=== PATIENT | female | born 1995 | race Caucasian/White ===

== ENCOUNTER 2016-12-20 02:43 | Emergency (ER) | payer SELFPAY ==
[2016-12-20 03:27] LABS: APPEARANCE,URINE CLEAR; BILIRUBIN,URINE NEGATIVE (NEGATIVE); GLUCOSE, URINE NEGATIVE (NEGATIVE); KETONES,URINE NEGATIVE (NEGATIVE); LEUKOCYTE ESTERASE,URINE NEGATIVE (NEGATIVE); NITRITE,URINE NEGATIVE (NEGATIVE); PROTEIN,URINE NEGATIVE (NEGATIVE); URINE SPECIFIC GRAVITY 1.001; UROBILINOGEN,URINE NEGATIVE mg/dL (<2.0)
[2016-12-20 03:57] LABS: ABSOLUTE EOSINOPHILS # (AUTO) 0.1 10^3/uL (0.0-0.6); ABSOLUTE LYMPHOCYTES (AUTO) 2.7 10^3/uL (0.5-4.7); ABSOLUTE MONOCYTES (AUTO) 0.9 10^3/uL (0.1-1.4); ABSOLUTE NEUT (AUTO) 6.6 10^3/uL (1.7-8.2); BASOPHILS % (AUTO) 0.3 % (0-2); HEMATOCRIT 42.1 % (36.0-47.0); HGB HCT DIFFERENCE 2.9; LYMPHOCYTES % (AUTO) 25.9 % (13-45); MEAN CORPUSCULAR HEMOGLOBIN 28.6 pg (27.0-33.4); MEAN CORPUSCULAR HGB CONC 35.5 g/dL (32.0-36.0); MEAN CORPUSCULAR VOLUME 81 fl (80-97); MONOCYTES % (AUTO) 8.4 % (3-13); RED BLOOD COUNT 5.22 10^6/uL (3.72-5.28); RED CELL DISTRIBUTION WIDTH 13.5 % (11.5-14.0); SEGMENTED NEUTROPHILS % (AUTO) 64.4 % (42-78); WHITE BLOOD COUNT 10.2 10^3/uL (4.0-10.5)
[2016-12-20 04:05] LABS: ALANINE AMINOTRANSFERASE 27 U/L (9-52); ALBUMIN 4.6 g/dL (3.5-5.0); ALCOHOL 113 mg/dL (NONE DETECTED); ALKALINE PHOSPHATASE 63 U/L (38-126); ANION GAP 18 (5-19); ASPARTATE AMINO TRANSFERASE 21 U/L (14-36); BILIRUBIN,DIRECT 0.3 mg/dL (0.0-0.4); BILIRUBIN,TOTAL 0.6 mg/dL (0.2-1.3); BLOOD UREA NITROGEN 17 mg/dL (7-20); CALCIUM 9.6 mg/dL (8.4-10.2); CARBON DIOXIDE 22 mmol/L (22-30); CHLORIDE 101 mmol/L (98-107); CREATININE RESULT 0.86 mg/dL (0.52-1.25); GLUCOSE 89 mg/dL (75-110); POTASSIUM 3.9 mmol/L (3.6-5.0); SODIUM 140.8 mmol/L (137-145); TOTAL PROTEIN 8.1 g/dL (6.3-8.2)
--- NOTE | 2016-12-20 04:41 | ER Document Report ---
ED General - General TRAVEL OUTSIDE OF THE U.S. IN LAST 30 DAYS: No <FREDI CARBAJAL - Last Filed: 12/20/16 04:41> <PHILIPPE ARORA - Last Filed: 12/20/16 10:34> - General Chief Complaint: Suicidal Ideation Stated Complaint: SUICIDAL IDEATION Notes: Patient is a 21-year-old male who presents for complaints of suicidal ideations. Patient says that yesterday he was very depressed and therefore he cut himself several times on the wrists. Today he is feeling better and went to a constitution party with his friend. His friend got pulled over and the patient became anxious and again depressed. He therefore was brought to ER says he is suicidal. Patient still says he is suicidal says he needs help. He denies being prescribed any medications. He says he does take melatonin to try to help him sleep. He is in the process of becoming transgender. He is on no antidepressant medications. Has no other complaints at this time. No recent fevers or infections. (FREDI CARBAJAL) - Related Data Allergies/Adverse Reactions: latex Allergy (Verified 12/20/16 02:53) Sulfa (Sulfonamide Antibiotics) Allergy (Verified 12/20/16 02:53) Past Medical History - Social History Smoking Status: Unknown if Ever Smoked Frequency of alcohol use: Occasional Drug Abuse: None Family History: Other - Mother and grandfather have obstructive sleep apnea Psychiatric Medical History: Reports: Hx Depression Past Surgical History: Reports: Hx Myringotomy <FREDI CARBAJAL - Last Filed: 12/20/16 04:41> Review of Systems <FREDI CARBAJAL - Last Filed: 12/20/16 04:41> <PHILIPPE ARORA - Last Filed: 12/20/16 10:34> - Review of Systems Notes: My Normal Review Basic REVIEW OF SYSTEMS: CONSTITUTIONAL : Denies fever, chills, or sweats. Denies recent illness. EENT: Denies eye, ear, throat, or mouth pain or symptoms. Denies nasal or sinus congestion. RESPIRATORY: Denies cough, cold, or chest congestion. Denies shortness of breath, difficulty breathing, or wheezing. GASTROINTESTINAL: Denies abdominal pain. Denies nausea, vomiting, or diarrhea. Denies constipation. Last BM: GENITOURINARY: Denies difficulty urinating, painful urination, burning, frequency, or blood in urine. MUSCULOSKELETAL: Denies neck or back pain or joint pain or swelling. SKIN: Self-induced abrasions to wrist. NEUROLOGICAL: Denies altered mental status or loss of consciousness. Denies headache. Denies weakness or paralysis or loss of use of either side. Denies problems with gait or speech. Denies sensory or motor loss. PSYCHIATRIC: Depression ALL OTHER SYSTEMS REVIEWED AND NEGATIVE. (FREDI CARBAJAL) Physical Exam <FREDI CARBAJAL - Last Filed: 12/20/16 04:41> <PHILIPPE ARORA - Last Filed: 12/20/16 10:34> - Vital signs Vitals: Temp Pulse Resp BP 98.4 F 66 20 136/75 H 12/20/16 07:08 12/20/16 07:08 12/20/16 07:08 12/20/16 07:08 - Notes Notes: General Appearance: Well nourished, alert, cooperative, no acute distress, no obvious discomfort. Well-appearing. Vitals: reviewed, See vital signs table. Head: no swelling or tenderness to the head Eyes: PERRL, EOMI, Conjuctiva clear Mouth: No decreasd moisture Neck: Supple, no neck tenderness Lungs: No wheezing, No rales, No rhonci, No accessory muscle use, good air exchange bilaterally. Heart: Normal rate, Regular rythm, No murmur, no rub Extremities: strength 5/5 in all extremities, good pulses in all extremities, no swelling or tenderness in the extremities, no edema. Skin: Several small superficial self-induced abrasions to both wrists. These abrasions barely break the skin. No suturing needed. Neuro: speech clear, oriented x 3, normal affect, responds appropriately to questions. (FREDI CARBAJAL) Course - Laboratory Result Diagrams: 12/20/16 03:12 12/20/16 03:12 <FREDI CARBAJAL - Last Filed: 12/20/16 04:41> - Laboratory Result Diagrams: 12/20/16 03:12 12/20/16 03:12 <PHILIPPE ARORA - Last Filed: 12/20/16 10:34> - Vital Signs Vital signs: Temp Pulse Resp BP Pulse Ox 98.4 F 66 20 136/75 H 12/20/16 07:08 12/20/16 07:08 12/20/16 07:08 12/20/16 07:08 - Laboratory Laboratory results interpreted by me: 12/20/16 12/20/16 03:12 03:12 Urine Blood SMALL H Salicylates < 1.0 L Acetaminophen < 10 L - Transfer of Care Notes: 12/20/16 04:44 Patient requests evaluation by psychiatry for her depression. Patient is voluntary. Patient does not voluntary committed and I do not feel fits involuntary commitment criteria at this time. I do not really suspect that the patient is truly suicidal currently at this moment. Patient is actually very happy appearing and upbeat. At this time patient is medically stable for psychiatric evaluation. 12/20/16 04:45 Dictation of this chart was performed using voice recognition software; therefore, there may be some unintended grammatical errors. (FREDI CARBAJAL) Discharge <FREDI CARBAJAL - Last Filed: 12/20/16 04:41> <PHILIPPE ARORA - Last Filed: 12/20/16 10:34> - Discharge Clinical Impression: Suicidal ideation Depression Qualifiers: Depression Type: unspecified Qualified Code(s): F32.9 - Major depressive disorder, single episode, unspecified Scratch of left forearm Qualifiers: Encounter type: initial encounter Qualified Code(s): S50.812A - Abrasion of left forearm, initial encounter Scratch of right forearm Qualifiers: Encounter type: initial encounter Qualified Code(s): S50.811A - Abrasion of right forearm, initial encounter Disposition: HOME, SELF-CARE Additional Instructions: DEPRESSION: Your evaluation reveals that you have mental depression. While symptoms may be vague, they often include disturbance of sleep, fatigue, loss of appetite , and general loss of interest in life. While depression may be a side effect of drugs, or a reaction to a major change in your life, many cases have no known cause. If depression is acute, and related to a major loss in your life, you can expect it to clear completely with time. If you have been depressed a long time , are prone to repeated bouts of depression or low mood, or have been thinking of suicide, get help. Depression can be treated with anti-depressant medication and counselling. Long-term depression will often take a few weeks to clear, even with appropriate medication. Follow-up care is important. SUICIDAL IDEATION: Suicidal ideation is a common medical term for thoughts about suicide, which may be as detailed as a formulated plan, without the suicidal act itself. Although most people who undergo suicidal ideation do not commit suicide, some go on to make suicide attempts. The range of suicidal ideation varies greatly from fleeting to detailed planning, role playing, and unsuccessful attempts. While thoughts about suicide are common, most people do not carry out serious actions to commit suicide. Based upon your evaluation and discussion with you, we do not believe you are currently at risk to act upon your thoughts of suicide. You have agreed to return to the Emergency Department, at any time , if you feel inclined to act upon your suicidal thoughts. ABRASIONS of the forearms: An abrasion is a scraping injury of the skin. Some scarring may result. The seriousness of an abrasion is not always obvious at first. Hidden tissue damage may be present and infection may occur despite proper care. Complete healing may take from ten days to as long as a month. The healing time depends on the depth of the abrasion, and on the amount of crushing of underlying tissues from the injury. Keep the wound and dressing clean. Do not shower or bathe the area until okayed by the doctor. If the dressing gets wet, remove it and blot the wound dry, then reapply a clean dressing. Dressings should be changed every day. Sunscreen should be used for six months after the skin is healed. If any signs of infection occur (swelling, redness, increasing tenderness, red streaks, profuse purulent drainage from the abrasion, tender lumps in the armpit or groin above the abrasion, or fever), see the doctor immediately. NON-SUTURED LACERATION: Your laceration did not require suturing. Some lacerations cannot be sutured because of increased infection risk, while others simply don't need stitches because they are shallow or very short. Your injury should be protected while it heals. Usually complete healing takes 10 to 14 days. Keep the dressing clean and dry, and change it every day. If you notice increasing pain, redness, swelling, drainage, or tender lumps in the armpit or groin above the injury, infection may be present. You should call the doctor at once. FOLLOW-UP CARE: If you have been referred to a physician for follow-up care, call the physician s office for an appointment as you were instructed or within the next two days. If you experience worsening or a significant change in your symptoms, notify the physician immediately or return to the Emergency Department at any time for re-evaluation. Referrals: [facility] [Provider Group] - Follow up tomorrow
--- NOTE | 2016-12-20 09:12 | EKG REPORT ---
SEVERITY:- NORMAL ECG - SINUS RHYTHM : Confirmed by: Joselito Damon MD 20-Dec-2016 09:12:09
--- NOTE | 2016-12-20 10:18 | ER Document Report ---
Doctor's Note Notes: 12/20/16 10:17 Rounds: Chart reviewed. Patient is being evaluated for depression, suicidal ideation, and some self-inflicted cuts. Patient is currently talking with mental health provider so patient not interviewed at this time. Review of chart reveals normal vital signs. Lab studies were normal except for an alcohol level CXIII. Patient did not get us a urine specimen and no urine drug screen has been done at this time. Still, patient appears to be medically stable for discharge or transfer. Mayelin Garcia M.D. 12/20/16 10:29 Able to interview patient. Denies feeling suicidal at this time. Mental health is recommending discharge for outpatient follow-up at [facility] tomorrow. Patient has minor scratches on her forearms and nothing that requires suturing or other medical care Mayelin Garcia M.D.
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
[2016-12-20 10:52] LABS: URINE BARBITURATES SCREEN NEGATIVE; URINE METHADONE SCREEN NEGATIVE; URINE OPIATES LOW NEGATIVE; URINE PHENCYCLIDINE SCREEN NEGATIVE
[2016-12-20 11:18] VITALS: BP 122/77
== END 2016-12-20 11:00 | disposition home or self-care (01) ==
LOC: ER 02:43
DX: F32.9 Major depressive disorder, single episode, unspecified (principal); F64.0 Transsexualism; S60.812A Abrasion of left wrist, initial encounter; S60.811A Abrasion of right wrist, initial encounter; X83.8XXA Intentional self-harm by other specified means, initial encounter; F17.200 Nicotine dependence, unspecified, uncomplicated; Z88.2 Allergy status to sulfonamides; Z91.040 Latex allergy status
CPT/HCPCS: 36415; 80053; 80307; 81001; 85025; 93005; 93010; 99285

== ENCOUNTER 2017-02-07 01:39 | Emergency (ER) | payer SELFPAY ==
[2017-02-07 02:23] LABS: ABSOLUTE BASOPHILS # (AUTO) 0.1 10^3/uL (0.0-0.2); ABSOLUTE EOSINOPHILS # (AUTO) 0.3 10^3/uL (0.0-0.6); ABSOLUTE LYMPHOCYTES (AUTO) 2.5 10^3/uL (0.5-4.7); ABSOLUTE MONOCYTES (AUTO) 0.8 10^3/uL (0.1-1.4); ABSOLUTE NEUT (AUTO) 6.4 10^3/uL (1.7-8.2); BASOPHILS % (AUTO) 0.5 % (0-2); EOSINOPHILS % (AUTO) 3.3 % (0-6); HEMATOCRIT 45.6 % (36.0-47.0); HEMOGLOBIN 15.4 g/dL (12.0-15.5); HGB HCT DIFFERENCE 0.6; LYMPHOCYTES % (AUTO) 24.9 % (13-45); MEAN CORPUSCULAR HEMOGLOBIN 28.1 pg (27.0-33.4); MEAN CORPUSCULAR HGB CONC 33.7 g/dL (32.0-36.0); MEAN CORPUSCULAR VOLUME 83 fl (80-97); MONOCYTES % (AUTO) 7.9 % (3-13); RED BLOOD COUNT 5.47 10^6/uL (3.72-5.28); RED CELL DISTRIBUTION WIDTH 14.3 % (11.5-14.0); SEGMENTED NEUTROPHILS % (AUTO) 63.4 % (42-78); WHITE BLOOD COUNT 10.1 10^3/uL (4.0-10.5)
[2017-02-07 02:34] LABS: ALANINE AMINOTRANSFERASE 39 U/L (9-52); ALBUMIN 4.2 g/dL (3.5-5.0); ALKALINE PHOSPHATASE 66 U/L (38-126); ANION GAP 13 (5-19); ASPARTATE AMINO TRANSFERASE 23 U/L (14-36); BILIRUBIN,DIRECT 0.3 mg/dL (0.0-0.4); BILIRUBIN,TOTAL 0.5 mg/dL (0.2-1.3); BLOOD UREA NITROGEN 10 mg/dL (7-20); CALCIUM 9.6 mg/dL (8.4-10.2); CARBON DIOXIDE 26 mmol/L (22-30); CHLORIDE 104 mmol/L (98-107); CREATININE RESULT 0.75 mg/dL (0.52-1.25); GLUCOSE 100 mg/dL (75-110); POTASSIUM 4.6 mmol/L (3.6-5.0); SODIUM 142.8 mmol/L (137-145); TOTAL PROTEIN 7.5 g/dL (6.3-8.2)
[2017-02-07 02:36] LABS: ALCOHOL < 10 mg/dL (NONE DETECTED)
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
[2017-02-07 05:33] LABS: APPEARANCE,URINE CLEAR; BILIRUBIN,URINE NEGATIVE (NEGATIVE); GLUCOSE, URINE NEGATIVE (NEGATIVE); KETONES,URINE NEGATIVE (NEGATIVE); LEUKOCYTE ESTERASE,URINE NEGATIVE (NEGATIVE); NITRITE,URINE NEGATIVE (NEGATIVE); PROTEIN,URINE NEGATIVE (NEGATIVE); URINE SPECIFIC GRAVITY 1.014; UROBILINOGEN,URINE NEGATIVE mg/dL (<2.0)
[2017-02-07 05:44] LABS: URINE BARBITURATES SCREEN NEGATIVE; URINE OPIATES LOW NEGATIVE; URINE PHENCYCLIDINE SCREEN NEGATIVE
[2017-02-07 05:45] LABS: URINE METHADONE SCREEN NEGATIVE
--- NOTE | 2017-02-07 09:38 | ER Document Report ---
Doctor's Note Notes: 02/07/17 09:36 I have evaluated this pt. this am and she has no c/o at this time. She feels all of her needs are being met and her physical exam is normal. She is awaiting disposition per mental health.
--- NOTE | 2017-02-07 09:45 | EKG REPORT ---
SEVERITY:- OTHERWISE NORMAL ECG - SINUS ARRHYTHMIA, RATE [id number] : Confirmed by: Venus Enrique 07-Feb-2017 09:44:08
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
--- NOTE | 2017-02-08 11:03 | ER Document Report ---
Doctor's Note Notes: 02/08/17 11:02 Rounds: Chart reviewed and patient interview. Patient is not very talkative or interactive. Appears tearful at times. Patient has a history of depression and bipolar disorder. Reportedly having auditory hallucinations and homicidal thoughts. Patient does not discuss these with me. Vital signs are all normal. Lab studies were all normal. Patient appears to be medically stable for transfer or discharge. Mayelin Garcia MD
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
[2017-02-08 17:37] VITALS: BP 112/65
== END 2017-02-08 16:05 | disposition home or self-care (01) ==
LOC: ER 01:39
DX: F31.5 Bipolar disorder, current episode depressed, severe, with psychotic features (principal); R45.850 Homicidal ideations; F17.200 Nicotine dependence, unspecified, uncomplicated; Z91.040 Latex allergy status; Z88.2 Allergy status to sulfonamides
CPT/HCPCS: 36415; 80053; 80307; 81001; 84703; 85025; 93005; 93010; 99285

== ENCOUNTER 2017-02-09 22:46 | Emergency (ER) | payer SELFPAY ==
--- NOTE | 2017-02-10 02:46 | ER Document Report ---
HPI - HPI Patient complains to provider of: Anxiety attack Onset: This evening Pain Level: 0 Context: 21-year-old female with a history of bipolar that was with her mother told her mother she needed to come to the emergency room because she felt like she was having an anxiety attack. She has been taking the medication. Not suicidal or homicidal. Associated Symptoms: None Exacerbated by: Denies Relieved by: Denies Similar symptoms previously: Yes Recently seen / treated by doctor: Yes - ROS ROS below otherwise negative: Yes Systems Reviewed and Negative: Yes All other systems reviewed and negative - CARDIOVASCULAR Cardiovascular: DENIES: Chest pain - REPRODUCTIVE Reproductive: DENIES: : - DERM Skin Color: Normal, [place] Past Medical History - General Information source: Patient - Social History Smoking Status: Current Every Day Smoker Chew tobacco use (# tins/day): No Frequency of alcohol use: Social Drug Abuse: None Lives with: Family Family History: Other - Mother and grandfather have obstructive sleep apnea Patient has suicidal ideation: No Patient has homicidal ideation: No Renal/ Medical History: Denies: Hx Peritoneal Dialysis Psychiatric Medical History: Reports: Hx Depression Past Surgical History: Reports: Hx Myringotomy, Hx Oral Surgery - wisdom teeth removal Vertical Provider Document - CONSTITUTIONAL Agree With Documented VS: Yes Exam Limitations: No Limitations - INFECTION CONTROL TRAVEL OUTSIDE OF THE U.S. IN LAST 30 DAYS: No - HEENT HEENT: Normocephalic - NECK Neck: Supple. negative: Lymphadenopathy-Left, Lymphadenopathy-Right - RESPIRATORY Respiratory: Breath Sounds Normal, No Respiratory Distress O2 Sat by Pulse Oximetry: 96 - CARDIOVASCULAR Cardiovascular: Regular Rate, Regular Rhythm - GI/ABDOMEN Gastrointestinal: Abdomen Soft, Abdomen Non-Tender - BACK Back: Normal Inspection - MUSCULOSKELETAL/EXTREMETIES Musculoskeletal/Extremeties: MAEW, FROM, Non-Tender - NEURO Level of Consciousness: Awake, Alert, Appropriate Motor/Sensory: No Motor Deficit, No Sensory Deficit - DERM Integumentary: Warm, Dry, No Rash Course - Re-evaluation Re-evalutation: 02/10/17 03:13 Spoke with her mother who will come pick her up and take her to [facility] as instructed on 02-07-17 - Vital Signs Vital signs: Temp Pulse Resp BP Pulse Ox 98.1 F 105 H 16 120/66 96 02/09/17 23:20 02/09/17 23:20 02/09/17 23:20 02/09/17 23:20 02/09/17 23:20 Discharge - Discharge Clinical Impression: Anxiety, bipola Insomnia Qualifiers: Insomnia type: unspecified Qualified Code(s): G47.00 - Insomnia, unspecified Condition: Good Disposition: HOME, SELF-CARE Instructions: Anxiety ([facility]), Bipolar Disorder ([facility]) Additional Instructions: go home with your mother go to [facility] as instructed by the psych consult when at [facility] on 02-07-17 to er any concerns
[2017-02-10] MEDS ORDERED: HYDROXYZINE PAMOATE 50 MG CAPSULE PO ONE (03:14)
[2017-02-10 07:30] VITALS: BP 118/56
== END 2017-02-10 03:20 | disposition home or self-care (01) ==
LOC: ER 22:46
DX: G47.00 Insomnia, unspecified (principal); F41.9 Anxiety disorder, unspecified; F31.9 Bipolar disorder, unspecified; F17.200 Nicotine dependence, unspecified, uncomplicated
CPT/HCPCS: 99283

== ENCOUNTER 2017-03-09 22:21 | Emergency (ER) | payer SELFPAY ==
[2017-03-09 23:07] LABS: ABSOLUTE BASOPHILS # (AUTO) 0.1 10^3/uL (0.0-0.2); ABSOLUTE EOSINOPHILS # (AUTO) 0.6 10^3/uL (0.0-0.6); ABSOLUTE LYMPHOCYTES (AUTO) 2.8 10^3/uL (0.5-4.7); ABSOLUTE MONOCYTES (AUTO) 0.9 10^3/uL (0.1-1.4); ABSOLUTE NEUT (AUTO) 5.8 10^3/uL (1.7-8.2); BASOPHILS % (AUTO) 0.6 % (0-2); EOSINOPHILS % (AUTO) 5.8 % (0-6); HEMATOCRIT 44.3 % (36.0-47.0); HEMOGLOBIN 14.5 g/dL (12.0-15.5); HGB HCT DIFFERENCE -0.8; LYMPHOCYTES % (AUTO) 27.9 % (13-45); MEAN CORPUSCULAR HEMOGLOBIN 27.7 pg (27.0-33.4); MEAN CORPUSCULAR HGB CONC 32.8 g/dL (32.0-36.0); MEAN CORPUSCULAR VOLUME 84 fl (80-97); RED BLOOD COUNT 5.25 10^6/uL (3.72-5.28); RED CELL DISTRIBUTION WIDTH 13.7 % (11.5-14.0); SEGMENTED NEUTROPHILS % (AUTO) 56.7 % (42-78); WHITE BLOOD COUNT 10.2 10^3/uL (4.0-10.5)
[2017-03-09 23:12] LABS: ALANINE AMINOTRANSFERASE 42 U/L (9-52); ALBUMIN 4.2 g/dL (3.5-5.0); ALCOHOL 81 mg/dL (NONE DETECTED); ALKALINE PHOSPHATASE 61 U/L (38-126); ANION GAP 15 (5-19); ASPARTATE AMINO TRANSFERASE 22 U/L (14-36); BILIRUBIN,DIRECT 0.4 mg/dL (0.0-0.4); BILIRUBIN,TOTAL 0.4 mg/dL (0.2-1.3); BLOOD UREA NITROGEN 14 mg/dL (7-20); CALCIUM 9.3 mg/dL (8.4-10.2); CARBON DIOXIDE 22 mmol/L (22-30); CHLORIDE 105 mmol/L (98-107); CREATININE RESULT 0.75 mg/dL (0.52-1.25); GLUCOSE 90 mg/dL (75-110); TOTAL PROTEIN 7.4 g/dL (6.3-8.2)
[2017-03-09 23:19] LABS: APPEARANCE,URINE CLEAR; BILIRUBIN,URINE NEGATIVE (NEGATIVE); GLUCOSE, URINE NEGATIVE (NEGATIVE); KETONES,URINE NEGATIVE (NEGATIVE); LEUKOCYTE ESTERASE,URINE NEGATIVE (NEGATIVE); NITRITE,URINE NEGATIVE (NEGATIVE); PROTEIN,URINE NEGATIVE (NEGATIVE); URINE SPECIFIC GRAVITY 1.005; UROBILINOGEN,URINE NEGATIVE mg/dL (<2.0)
[2017-03-09 23:32] LABS: URINE BARBITURATES SCREEN NEGATIVE; URINE METHADONE SCREEN NEGATIVE; URINE OPIATES LOW NEGATIVE; URINE PHENCYCLIDINE SCREEN NEGATIVE
--- NOTE | 2017-03-10 00:44 | ER Document Report ---
ED General - General Chief Complaint: Psych Problem Stated Complaint: PSYCH EVAL Time Seen by Provider: 03/09/17 22:57 Notes: Patient is a 22-year-old female who presents with suicidal ideation. Patient admits to alcohol consumption tonight. Notes passive suicidal ideation without specific plan. Denies any homicidal ideation. Has had similar symptoms in the past. Denies any acute trigger. Denies feelings. Nothing worsens her symptoms. She has not spoken to her psychiatrist or primary provider regarding today's concerns. She denies any acute medical complaints. TRAVEL OUTSIDE OF THE U.S. IN LAST 30 DAYS: No - Related Data Allergies/Adverse Reactions: latex Allergy (Verified 12/20/16 02:53) Sulfa (Sulfonamide Antibiotics) Allergy (Verified 12/20/16 02:53) Past Medical History - General Information source: Patient - Social History Smoking Status: Never Smoker Frequency of alcohol use: Occasional Drug Abuse: None Lives with: Alone Family History: Reviewed & Not Pertinent, Other - Mother and grandfather have obstructive sleep apnea Renal/ Medical History: Denies: Hx Peritoneal Dialysis Psychiatric Medical History: Reports: Hx Depression Past Surgical History: Reports: Hx Myringotomy, Hx Oral Surgery - wisdom teeth removal Review of Systems - Review of Systems Notes: Constitutional: Negative for fever. HENT: Negative for sore throat. Eyes: Negative for visual changes. Cardiovascular: Negative for chest pain. Respiratory: Negative for shortness of breath. Gastrointestinal: Negative for abdominal pain, vomiting or diarrhea. Genitourinary: Negative for dysuria. Musculoskeletal: Negative for back pain. Skin: Negative for rash. Neurological: Negative for headaches, weakness or numbness. 10 point ROS negative except as marked above and in HPI. Physical Exam - Vital signs Interpretation: Normal Notes: PHYSICAL EXAMINATION: GENERAL: Well-appearing, well-nourished and in no acute distress. HEAD: Atraumatic, normocephalic. EYES: Pupils equal round and reactive to light, extraocular movements intact, sclera anicteric, conjunctiva are normal. ENT: nares patent, oropharynx clear without exudates. Moist mucous membranes. NECK: Normal range of motion, supple without lymphadenopathy LUNGS: Breath sounds clear to auscultation bilaterally and equal. No wheezes rales or rhonchi. HEART: Regular rate and rhythm without murmurs ABDOMEN: Soft, nontender, normoactive bowel sounds. No guarding, no rebound. No masses appreciated. EXTREMITIES: Normal range of motion, no pitting or edema. No cyanosis. NEUROLOGICAL: No focal neurological deficits. Moves all extremities spontaneously and on command. PSYCH: Depressed mood and affect. Poor eye contact SKIN: Warm, Dry, normal turgor, no rashes or lesions noted. Course - Re-evaluation Re-evalutation: 03/10/17 00:43 Patient presents with passive suicidal ideation without a specific plan or means. She has been drinking tonight. Denies access to firearms. Denies any acute medical complaints. Only has very superficial abrasions on the bilateral forearms that does not appear to be a serious suicide attempt. No acute medical complaints. She does not meet IVC criteria but is agreeable to staying until the AM to speak with psychiatry. 03/10/17 04:30 Laboratories notable only for mild alcohol elevation. Otherwise unremarkable. Medically cleared for evaluation by psychiatry in the morning. - Laboratory Result Diagrams: 03/09/17 22:31 03/09/17 22:31 Laboratory results interpreted by me: 03/09/17 03/09/17 22:31 22:31 Urine Blood SMALL H Salicylates < 1.0 L Acetaminophen < 10 L - EKG Interpretation by Me Additional EKG results interpreted by me: 03/10/17 04:31 Sinus tachycardia. Rate 105. No ST elevations or depressions. QTc is 423. Discharge - Discharge Clinical Impression: Suicidal ideation Condition: Good Disposition: PSYCH HOSP/UNIT
--- NOTE | 2017-03-10 08:14 | EKG REPORT ---
SEVERITY:- OTHERWISE NORMAL ECG - SINUS TACHYCARDIA : Confirmed by: Joselito Damon MD 10-Mar-2017 08:13:33
--- NOTE | 2017-03-10 09:43 | ER Document Report ---
ED Psych Disorder / Suicide - General Chief Complaint: Psych Problem Stated Complaint: PSYCH EVAL Time Seen by Provider: 03/09/17 22:57 TRAVEL OUTSIDE OF THE [place] IN LAST 30 DAYS: No - HPI Normal mood: Yes Associated symptoms: Normal affect, Normal mood Notes: Patient is a 22-year-old female who presents with suicidal ideation. Patient admits to alcohol consumption tonight. Notes passive suicidal ideation without specific plan. Denies any homicidal ideation. Has had similar symptoms in the past. Denies any acute trigger. Denies feelings. Nothing worsens her symptoms. She has not spoken to her psychiatrist or primary provider regarding today's concerns. Patient disclosed that she is feeling much better this morning. Patient states her mother is in [place] currently visiting the patient's younger sister. Patient states she did go to [facility] as referred but states they cost too much. Patient states they did not take her Medicaid. Patient states her Medicaid is not and is [place]. Patient agrees to contact [facility] to resubmit her insurance. Patient disclosed she was feeling lonely and scared being home alone. Patient denies current suicidal ideation. Patient is alert and orientated to person, place, time and circumstance. Mood is euthymic with congruent affect; patient smiles and engages with clinician. Patient denies current suicidal ideation denies homicidal ideation. Patient denies auditory visual hallucinations; patient is not demonstrating any behavior congruent with responding to internal stimuli. No delusions are noted. Thought processes organized and linear. Conversational speech was within normal rate, tone and prosody. Eye contact was well-maintained. Intellectual abilities appear to be low average range. Attention and concentration are good. Insight, judgment, impulse control are fair. 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 Patient does not meet IVC criteria per [place] GS 122C. Patient denies current suicidal ideation. Patient is noted to have history of having suicidal ideation while under the influence of alcohol. Patient is recommended to follow -up with outpatient mental health provider [facility]. Dr. Dsouza was consulted and the care and management of this patient; attending physician medications and disposition. - Related Data Allergies/Adverse Reactions: latex Allergy (Verified 12/20/16 02:53) Sulfa (Sulfonamide Antibiotics) Allergy (Verified 12/20/16 02:53) Past Medical History - General Information source: Patient - Social History Smoking Status: Never Smoker Frequency of alcohol use: Occasional Drug Abuse: None Lives with: Alone Family History: Reviewed & Not Pertinent, Other - Mother and grandfather have obstructive sleep apnea Renal/ Medical History: Denies: Hx Peritoneal Dialysis Psychiatric Medical History: Reports: Hx Depression Past Surgical History: Reports: Hx Myringotomy, Hx Oral Surgery - wisdom teeth removal Physical Exam - Vital signs Vitals: Temp Pulse Resp BP Pulse Ox 97.9 F 119 H 16 129/65 H 96 03/09/17 22:25 03/09/17 22:25 03/09/17 22:25 03/09/17 22:25 03/09/17 22:25 Course - Vital Signs Vital signs: Temp Pulse Resp BP Pulse Ox 97.9 F 119 H 16 129/65 H 96 03/09/17 22:25 03/09/17 22:25 03/09/17 22:25 03/09/17 22:25 03/09/17 22:25 - Laboratory Result Diagrams: 03/09/17 22:31 03/09/17 22:31 Laboratory results interpreted by me: 03/09/17 03/09/17 22:31 22:31 Urine Blood SMALL H Salicylates < 1.0 L Acetaminophen < 10 L Discharge - Discharge Clinical Impression: Suicidal ideation, Bipolar I disorder, Gender dysphoria in adolescent and adult Condition: Good Disposition: HOME, SELF-CARE Additional Instructions: DEPRESSION: Your evaluation reveals that you have mental depression. While symptoms may be vague, they often include disturbance of sleep, fatigue, loss of appetite , and general loss of interest in life. While depression may be a side effect of drugs, or a reaction to a major change in your life, many cases have no known cause. If depression is acute, and related to a major loss in your life, you can expect it to clear completely with time. If you have been depressed a long time , are prone to repeated bouts of depression or low mood, or have been thinking of suicide, get help. Depression can be treated with anti-depressant medication and counselling. Long-term depression will often take a few weeks to clear, even with appropriate medication. Follow-up care is important. SUICIDAL IDEATION: Suicidal ideation is a common medical term for thoughts about suicide, which may be as detailed as a formulated plan, without the suicidal act itself. Although most people who undergo suicidal ideation do not commit suicide, some go on to make suicide attempts. The range of suicidal ideation varies greatly from fleeting to detailed planning, role playing, and unsuccessful attempts. While thoughts about suicide are common, most people do not carry out serious actions to commit suicide. Based upon your evaluation and discussion with you, we do not believe you are currently at risk to act upon your thoughts of suicide. You have agreed to return to the Emergency Department, at any time , if you feel inclined to act upon your suicidal thoughts. FOLLOW-UP CARE: Please follow-up with your outpatient mental health provider, [facility], within 3-5 days for your mental health treatment. If you experience worsening or a significant change in your symptoms, notify the physician immediately or return to the Emergency Department at any time for re-evaluation. Referrals: [facility] [Outside] - Follow up as needed
[2017-03-10 10:04] VITALS: BP 119/65
== END 2017-03-10 10:10 | disposition home or self-care (01) ==
LOC: ER 22:21
DX: F31.5 Bipolar disorder, current episode depressed, severe, with psychotic features (principal); F64.0 Transsexualism; R45.851 Suicidal ideations; R00.0 Tachycardia, unspecified; Z91.040 Latex allergy status; Z88.2 Allergy status to sulfonamides
CPT/HCPCS: 36415; 80053; 80307; 81001; 85025; 93005; 93010; 99285